=== PATIENT | female | born 1950 | race Caucasian/White ===

== ENCOUNTER → 2016-12-15 | Outpatient (CLI) | payer OTHER | LOC: CIMAGING 07:57 | PROVIDERS: ATTEND Family Medicine | DX: R10.2 Pelvic and perineal pain (principal); R19.7 Diarrhea, unspecified; D25.2 Subserosal leiomyoma of uterus; Z78.0 Asymptomatic menopausal state | CPT/HCPCS: 76856-PO ==

== ENCOUNTER → 2018-01-18 | Outpatient (CLI) | payer OTHER | LOC: CIMAGING 16:09 | PROVIDERS: ATTEND Family Medicine | DX: M51.36 Other intervertebral disc degeneration, lumbar region (principal); M53.86 Other specified dorsopathies, lumbar region; I70.0 Atherosclerosis of aorta; I70.8 Atherosclerosis of other arteries; R93.7 Abnormal findings on diagnostic imaging of other parts of musculoskeletal system; Z90.49 Acquired absence of other specified parts of digestive tract | CPT/HCPCS: 72100-PO; 73521-PO ==

== ENCOUNTER → 2018-01-23 | Outpatient (CLI) | payer OTHER | LOC: CIMAGING 14:11 | PROVIDERS: ATTEND Family Medicine | DX: R93.8 Abnormal findings on diagnostic imaging of other specified body structures (principal) | CPT/HCPCS: 73551-PO ==

== ENCOUNTER 2018-07-10 10:39 | Emergency (ER) | payer OTHER ==
[2018-07-10] MEDS ORDERED: IBUPROFEN 600 MG TAB PO ONE (11:43)
--- NOTE | 2018-07-10 12:01 | EDPHY ---
H & P Time Seen by Provider: 07/10/18 10:58 HPI/ROS: CHIEF COMPLAINT: Upper back pain HISTORY OF PRESENT ILLNESS: Patient states that she was at physical therapy on for her hips. The physical therapist was working on her back and she felt a pop and some pain in the thoracic area. That pain has gotten worse since and now radiates from the back around to the breast. She did not fall. She does have history of back problems in the past. She denies fevers or chills. She has had no numbness or weakness. She has tried ice to the back but continues to be quite painful. REVIEW OF SYSTEMS: Contents of 10 point review of systems otherwise negative except for what is mentioned in HPI. General Appearance: Alert, no distress. Eyes: Pupils equal and round no icterus Respiratory: No respiratory distress, lungs clear to auscultation bilaterally Neurological: Awake, alert, no focal deficits. Skin: Warm and dry, no rashes. Musculoskeletal: Neck is supple nontender. Tenderness to palpation diffusely in the T 4,5,6 region with tenderness to palpation to the right paraspinal muscles. Also tenderness to palpation in the axilla. Extremities are symmetrical, full range of motion, no edema. Psychiatric: Patient is oriented X 3, there is no agitation. Medical/surgical history: History of rheumatoid arthritis with Raynaud's and Sjogren's syndrome. Diabetes, kidney stones, peripheral neuropathy, skin cancer to the scalp. Surgeries include mastectomy bilaterally. Social history: Nonsmoker. Smoking Status: Never smoked Constitutional: Initial Vital Signs Temperature (C) 36.5 C 07/10/18 10:59 Heart Rate 77 07/10/18 10:59 Respiratory Rate 16 07/10/18 10:59 Blood Pressure 144/83 H 07/10/18 10:59 O2 Sat (%) 95 07/10/18 10:59 O2 Delivery Mode Room Air Allergies/Adverse Reactions: oxycodone HCl [From Percocet] Allergy (Verified 07/10/18 10:57) CATS Allergy (Severe, Uncoded 07/10/18 10:57) TROUBLE BREATHING/EYES SWELL Home Medications: Medication Instructions Recorded AMITRIPTYLINE HCL 02/24/16 Cyclobenzaprine 02/24/16 Hydrocodon-Acetaminophen 5-325 02/24/16 Januvia 100 MG (RX) 02/24/16 Losartan Potassium 02/24/16 Prednisone 02/24/16 Proair Hfa Icu (RX) 02/24/16 Salagen 5mg (RX) 02/24/16 Sulfasalazine 02/24/16 Synthroid 02/24/16 Zolpidem Tartrate 02/24/16 Empagliflozin [Jardiance] 07/10/18 Hydrocodone/Acetaminophen [[place] 1 each PO Q4 PRN 3 Days #6 tablet 07/10/18 5/325 (*)] Medical Decision Making - Diagnostics Imaging Results: Imaging Impressions Thoracic Spine X-Ray 07/10/18 11:44 Impression: 1. No acute thoracic spine compression fracture. 2. Age indeterminate minimal L1 compression fracture. Findings discussed with Emergency Department physician, Dr. Marni Del Rio on July 10, 2018 at 1230 hours. Imaging: Discussed imaging studies w/ metal bench patternmaker Radiologist Differential Diagnosis: Differential diagnosis includes compression fracture, musculoskeletal back strain, shingles, cardiopulmonary source. After evaluation suspect patient has musculoskeletal back pain after physical therapy manipulation several days ago. No evidence of new compression fracture, rash, neurovascular deficit. Low suspicion for cardiopulmonary cause. Will try lidocaine patch and given prescription for a few [place] for pain. Recommended follow-up with primary care physician. Activity as tolerated. Stable for discharge. - Data Points Medications Given: Discontinued Medications Ibuprofen (Motrin) 600 mg PO EDNOW ONE Stop: 07/10/18 11:44 Last Admin: 07/10/18 12:09 Dose: 600 mg Miscellaneous Information (Patch Removal) 1 ea TD DAILY21 SUYAPA Stop: 01/06/19 20:59 Last Admin: 07/10/18 12:29 Dose: 1 ea Miscellaneous Medication (Icy Hot Lidocaine/Menthol 4%/1% Patch) 1 patch TD EDNOW ONE Stop: 07/10/18 12:19 Last Admin: 07/10/18 12:28 Dose: 1 patch Departure - Departure Disposition: Home, Routine, Self-Care Clinical Impression: Musculoskeletal back pain Condition: Fair Instructions: Hydrocodone/Acetaminophen (By mouth), Back Pain (ED) Additional Instructions: Use ice, the lidocaine patch, occasional [place] as needed for pain. Follow up with your primary care doctor for recheck if not improving within the week. Activity as tolerated. Referrals: Otteman,Chemo B, DO [Primary Care Provider] - As per Instructions Prescriptions: Hydrocodone/Acetaminophen [[place] 5/325 (*)] 1 each PO Q4 PRN 3 Days #6 tablet PRN Reason: Pain, Moderate
[2018-07-10] MEDS ORDERED: LIDOCAINE 4%/MENTHOL 1% PATCH TD ONE (12:18)
[2018-07-10 12:46] VITALS: BP 155/73
[2018-07-10] MEDS ORDERED: PATCH REMOVAL 1 EA PATCH TD SCH (21:00)
== END 2018-07-10 12:44 | disposition home or self-care (01) ==
LOC: CED 10:39
DX: M54.6 Pain in thoracic spine (principal)
CPT/HCPCS: 72070-PO

== ENCOUNTER → 2019-02-22 | Outpatient (CLI) | payer OTHER | LOC: CIMAGING 14:58 | PROVIDERS: ATTEND Family Medicine | DX: R63.4 Abnormal weight loss (principal); I25.10 Atherosclerotic heart disease of native coronary artery without angina pectoris | CPT/HCPCS: 71046-PO ==

== ENCOUNTER → 2019-03-13 | Outpatient (CLI) | payer OTHER | LOC: CIMAGING 07:56 | PROVIDERS: ATTEND Family Medicine | DX: R63.4 Abnormal weight loss (principal); R19.7 Diarrhea, unspecified; R16.2 Hepatomegaly with splenomegaly, not elsewhere classified; K76.0 Fatty (change of) liver, not elsewhere classified; E11.9 Type 2 diabetes mellitus without complications; Z90.49 Acquired absence of other specified parts of digestive tract; Z85.3 Personal history of malignant neoplasm of breast | CPT/HCPCS: 76700-PO ==